=== PATIENT | male | born 1965 | race Caucasian/White ===

== ENCOUNTER 2019-08-20 17:39 | Inpatient (IN) | payer OTHER ==
[~2019-08-20] VITALS: Ht 180.3 cm; Wt 75.3 kg
[2019-08-20 17:40] VITALS: BP 113/70
[2019-08-20 18:06] LABS: BASO # 0.1 10*3/uL (0.0-0.1); BASO % 0.5 % (0.0-1.0); EOS # 0.2 10*3/uL (0.0-0.4); EOS % 1.4 % (1.0-4.0); HEMATOCRIT 40.5 % (42.0-52.0); LYMPH # 1.7 10*3/uL (1.3-4.4); LYMPH % 11.5 % (27.0-41.0); MEAN CELL VOLUME 93.8 fl (80.0-94.0); MEAN CORPUSCULAR HGB 30.1 pg (27.0-31.0); MEAN CORPUSCULAR HGB CONC 32.1 g/dl (33.0-37.0); MEAN PLATELET VOLUME 9.3 fl (9.6-12.3); MONO % 6.6 % (3.0-9.0); NEUT # 11.7 10*3/uL (2.3-7.9); NEUT % 79.3 % (47.0-73.0); PLATELET COUNT AUTOMATED 293 10*3/uL (130-400); RED BLOOD COUNT 4.32 10*6/uL (4.50-5.90); RED CELL DISTRI WIDTH 13.4 % (0-14.5); WHITE BLOOD COUNT 14.8 10*3/uL (4.8-10.8)
[2019-08-20 18:16] LABS: ACT PARTIAL THROMBO TIME 27.7 SECONDS (20.0-32.1); INTERNATIONAL NORM RATIO 0.9 (2.0-3.5)
[2019-08-20 18:22] LABS: ALBUMIN 2.8 gm/dl (3.1-4.5); ALKALINE PHOSPHATASE 83 U/L (45-117); BUN 13 mg/dl (7-24); CHLORIDE 104 mmol/L (98-107); POTASSIUM 3.7 mmol/L (3.5-5.1); SGOT/AST 26 IU/L (3-35); SGPT/ALT 29 U/L (12-78); SODIUM 138 mmol/L (136-145); TOTAL PROTEIN 6.7 gm/dL (6.4-8.2)
[2019-08-20 18:25] LABS: ETHYL ALCOHOL < 3.0 mg/dl (<3)
[2019-08-20 18:40] LABS: BILIRUBIN NEGATIVE (NEGATIVE); BLOOD NEGATIVE (NEGATIVE); CLARITY CLEAR (CLEAR); COLOR YELLOW (YELLOW); GLUCOSE NEGATIVE (NEGATIVE); KETONE NEGATIVE (NEGATIVE); LEUKO ESTERASE NEGATIVE (NEGATIVE); NITRITE NEGATIVE (NEGATIVE); PH 5.5 (5.0-9.0); SPECIFIC GRAVITY >= 1.030 (1.005-1.030)
[2019-08-20 18:49] LABS: URINE AMPHETAMINES > 1000 (1000ng/ml); URINE BARBITURATES < 200 (200ng/ml); URINE BENZODIAZEPINES < 200 (200ng/ml); URINE CANNABINOIDS (THC) < 50 (50ng/ml); URINE COCAINE > 300 (300ng/ml); URINE METHADONE < 300 (300ng/ml); URINE OPIATES > 300 (300ng/ml)
[2019-08-20 18:50] LABS: URINE PHENCYCLIDINE < 25 (25ng/ml)
[2019-08-20 18:52] LABS: BACTERIA TRACE; CALCIUM OXALATE CRYSTALS 1+; MUCOUS 4+; WBC 0-2 wbc/hpf (0-5)
--- NOTE | 2019-08-20 19:34 | NUR ---
PT REFUSING TO BE CHECKED FOR WOUNDS.
--- NOTE | 2019-08-20 19:38 | NUR ---
24 HR chart check completed.
[2019-08-20 20:00] VITALS: BP 125/73
--- NOTE | 2019-08-20 20:00 | NUR ---
The assessment has been completed. EDITH BOLANOS
[2019-08-21] VITALS: BP 126/75
--- NOTE | 2019-08-21 03:18 | NUR ---
Patient resting quietly with no c/o discomfort. Respirations easy and regular. Vital signs stable. No overt distress. EDMUNDO IRWIN
[2019-08-21 07:04] LABS: BASO # 0.1 10*3/uL (0.0-0.1); BASO % 0.8 % (0.0-1.0); EOS # 0.3 10*3/uL (0.0-0.4); EOS % 3.4 % (1.0-4.0); HEMATOCRIT 39.7 % (42.0-52.0); HEMOGLOBIN 12.5 g/dl (14.0-18.0); LYMPH % 20.9 % (27.0-41.0); MEAN CELL VOLUME 95.4 fl (80.0-94.0); MEAN CORPUSCULAR HGB CONC 31.5 g/dl (33.0-37.0); MEAN PLATELET VOLUME 9.5 fl (9.6-12.3); MONO # 0.7 10*3/uL (0.1-1.0); MONO % 7.5 % (3.0-9.0); NEUT # 6.2 10*3/uL (2.3-7.9); NEUT % 66.3 % (47.0-73.0); PLATELET COUNT AUTOMATED 265 10*3/uL (130-400); RED BLOOD COUNT 4.16 10*6/uL (4.50-5.90); RED CELL DISTRI WIDTH 13.4 % (0-14.5); WHITE BLOOD COUNT 9.4 10*3/uL (4.8-10.8)
--- NOTE | 2019-08-21 07:09 | NUR ---
VANC NOT YET GIVEN BECAUSE ZOSYN STILL RUNNING. VANC TO BE HUNG SOON.
--- NOTE | 2019-08-21 07:23 | NUR ---
TUNDE ORELLANA [id number] Please refer to the physician's history and physical for past medical history, comorbid conditions, and allergies. Diagnosis: OPIOID USE DISORDER RIGHT FOREARM CELLULITIS Linden Score: , WOUND DESCRIPTIONS: Wound Number: 1 Location of the wound: right elbow Thickness: Partial Size: 1.5cm x 1.0cm x 0.1cm Tunneling: none Undermining: none Sinus Tract: none Presence of Exudate: none Amount: None Color: Red Odor: None Periwound Skin Appearance: Induration, erythema, warmth Wound edges: approximated Pain (associated with wound): tender to touch How does patient state this happened? pt stated he missed while injecting drugs Wound Number: 2 Location of the wound: right hand Thickness: Partial Size: 1.0cm x 0.6cm x <0.1cm Tunneling: none Undermining: none Sinus Tract: none Presence of Exudate: none Amount: None Color: Red Odor: None Periwound Skin Appearance: Normal Wound edges: approximated Pain (associated with wound): none time of assessment How does patient state this happened? pt stated he missed while injecting drugs Surface the patient is resting on: Isoflex SKIN PREVENTION RECOMMENDATION: 1. Pressure redistribution support surface as appropriate 2. Elevate heels 3. Remove boots/TEDS every shift and reapply 4. Head of bed 30 degrees as tolerated 5. Assess nutrition and hydration 6. Manage moisture 7. Avoid the use of containment devices while in bed 8. Use absorptive products on surfaces limit layers of linens on bed 9. Turn and reposition every 1-2 hours in bed and every 1 hour in chair as tolerated 10. Weight shifts every 15 minutes while up in chair 11. Offloading with pillows or device to keep heels elevated off bed 12. Monitor skin at least every shift 13. Inspect under medical devices twice a day WOUND TREATMENT RECOMMENDATIONS: ultrasound of right elbow to rule out abscess Partial thickness guidelines: Cleanse right hand and right elbow with nss and apply sureprep around the wound therahoney to wound bed and cover with optifoam gentle
[2019-08-21 07:24] LABS: ALBUMIN 2.5 gm/dl (3.1-4.5); ALKALINE PHOSPHATASE 72 U/L (45-117); BUN 8 mg/dl (7-24); CHLORIDE 107 mmol/L (98-107); CHOLESTEROL 114 mg/dL (<200); CREATININE 0.65 mg/dL (0.70-1.30); FREE T4 0.94 ng/dl (0.76-1.46); HDL CHOLESTEROL 67 mg/dl (40-60); LDL CHOLESTEROL 38 mg/dL (9-159); PHOSPHOROUS 3.5 mg/dL (2.5-4.9); SGOT/AST 23 IU/L (3-35); SGPT/ALT 23 U/L (12-78); SODIUM 139 mmol/L (136-145); TOTAL PROTEIN 6.1 gm/dL (6.4-8.2); TRIGLYCERIDES 46 mg/dl (<150); VLDL CHOLESTEROL 9 mg/dL (6-40)
[2019-08-21 07:54] VITALS: BP 118/76
--- NOTE | 2019-08-21 08:40 | NUR ---
PATIENT RESTING COMFORTABLY IN BED, PLEASANT DURING AM ASSEMENT. FABRICE JAEGER SPNRCC
--- NOTE | 2019-08-21 09:15 | NUR ---
Rebeca HOUSER notified of wound care recommendations.
--- NOTE | 2019-08-21 10:56 | NUR ---
PATIENT RESTING IN BED WATCHING TV, NO C/O AT THIS TIME. FABRICE JAEGER SPNRCC
--- NOTE | 2019-08-21 11:41 | NUR ---
[place] SPOKE WITH PATIENT ABOUT [facility]. PATIENT CAME [facility] [place]. PATIENT IS UPSET THAT [facility] WILL NOT TAKE HIM BACK DUE TO PATIENT NEEDING A HIGHER LEVEL OF CARE. PATIENT DECLINED [facility] AT THIS TIME. LIZ CAIN B.A. RETAIL CUSTOMER SERVICE REPRESENTATIVE
--- NOTE | 2019-08-21 12:16 | NUR ---
PT STATES THAT HE FEELS LIKE HE IS GOING TO START WITHDRAWING, FEELS LIKE HE HAS CHILLS BUT NO TREMORS NOTED, MEDICATED WITH TORADOL AND VISTARIL TO HELP WITH ACHES AND RELAXATION, RN TALKED WITH DR. INGRID JAEGER SPNRCC
[2019-08-21 12:23] VITALS: BP 122/76
--- NOTE | 2019-08-21 12:34 | NUR ---
TO ULTRASOUND VIA W/C ACCOMPANIED BY TRANSPORT AND STUDENT FABRICE JAEGER SPNRCC
--- NOTE | 2019-08-21 13:14 | NUR ---
PATIENT RETURNED FROM ULTRASOUND, PATIENT RESTING IN BED NO COMPLAINTS AT THIS TIME, STATES MEDICATION IS EFFECTIVE AT THIS TIME. FABRICE JAEGER SPNRCC
--- NOTE | 2019-08-21 13:28 | NUR ---
PATIENT REFUSED BATH/SHOWER AFTER MANY ATTEMPTS THROUGHOUT SHIFT. FABRICE JAEGER SPNRCC
[2019-08-21 16:00] VITALS: BP 127/76
[2019-08-21 20:00] VITALS: BP 127/74
[2019-08-22] VITALS: BP 124/79
--- NOTE | 2019-08-22 02:45 | NUR ---
Patient resting quietly with no c/o discomfort. Respirations easy and regular. Vital signs stable. No overt distress. VANDANA SINGLETARY
--- NOTE | 2019-08-22 04:18 | NUR ---
Recommend follow up for wound care in outpatient setting patient refused at this time.
[2019-08-22 08:00] VITALS: BP 128/92
--- NOTE | 2019-08-22 11:42 | NUR ---
PT COMPLAINING OF R SIDE ARM AND BACK PAIN 9/10 THROBBING TORADOL GIVEN WILL REASSES IN 1HR
[2019-08-22 12:00] VITALS: BP 135/79
--- NOTE | 2019-08-22 12:42 | NUR ---
PT SLEEPING EASILY AROUSABLE NO PAIN AFTER TORADOL GIVEN @ 1142
[2019-08-22] MEDS ORDERED: AUGMENTIN 875875 MG PO (13:57)
--- NOTE | 2019-08-22 14:30 | NUR ---
Nutritional Support Services Note: Pt is eating 100% of regular diet as ordered. Cellulitis noted. Ht.5'11 Wt.166# IBW [id number]. He is at appropriate wt for ht at this time. He refuses a supplement. He receives a night snack. Will follow as needed. Uma Neely Rdn Ld
--- NOTE | 2019-08-22 15:05 | NUR ---
PT DISCHARGE PAPERS READ/GIVEN TO PT. PT TAKEN TO PHARMACY BY ME TO GET PRESCRIPTION. PT TAKEN DOWN TO LEVEL 1 WITH SECURITY FOR CAB TO BE HERE
== END 2019-08-22 15:05 | disposition home or self-care (01) | DRG 383 ==
LOC: ED 17:39 → 4E 18:51 → EDHOLD 18:51 → 4E 19:11
PROVIDERS: Emergency Medicine; Family Medicine; ADMIT Internal Medicine
DX: L03.113 Cellulitis of right upper limb (principal); F11.23 Opioid dependence with withdrawal; E44.0 Moderate protein-calorie malnutrition; E83.51 Hypocalcemia; Z79.899 Other long term (current) drug therapy; Z87.891 Personal history of nicotine dependence; Z88.8 Allergy status to other drugs, medicaments and biological substances; Z68.23 Body mass index [BMI] 23.0-23.9, adult